=== PATIENT | male | born 1955 | race Caucasian/White ===

== ENCOUNTER 2020-09-20 19:22 | Emergency (ER) | payer MEDICARE, OTHER ==
[2020-09-20] MEDS ORDERED: Sodium Chloride 0.9% 10 ML Syringe FLUSH PRN (19:45)
--- NOTE | 2020-09-20 20:59 | EDM.PDOC ---
ED HPI GENERAL MEDICAL PROBLEM - General Chief Complaint: Respiratory Problem Stated Complaint: SOB Time Seen by Provider: 09/20/20 19:44 Source of Information: Reports: Patient, Family History Limitations: Reports: No Limitations - History of Present Illness INITIAL COMMENTS - FREE TEXT/NARRATIVE: Swetha is a 65-year-old male presenting to the ED for evaluation of hypoxia and dyspnea. Patient has a history significant for COPD and does use home oxygen with his CPAP machine but does not usually wear oxygen during the day. Today he was feeling more washed out, short of breath, and experience some chest tightness and checked his oxygen level finding it only at 81%. He did scrap picker his CPAP to the oxygen concentrator and was using that for about an hour which reportedly did bring his saturation up to 86%, however, the patient was still feeling significantly short of breath. He denies any cough or sputum production. He has not had any fever or chills. He also complains of flulike symptoms including backache and muscle pains. He has been vaccinated for COVID- 19 with both vaccine doses. He has not lost his sense of taste or smell. - Related Data Allergies Allergy/AdvReac Type Severity Reaction Status Date / Time No Known Allergies Allergy Verified 09/20/20 19:58 Home Meds: Home Meds Omeprazole 40 mg PO DAILY 10/04/19 [History] lisinopriL [Lisinopril] 10 mg PO DAILY 10/04/19 [History] metFORMIN [Glucophage] 1,000 mcg PO BID 10/04/19 [History] Albuterol Sulfate [Albuterol Sulfate Hfa] 8.5 gm IH Q4H PRN 09/20/20 [History] Aspirin [Ecotrin EC] 81 mg PO DAILY 09/20/20 [History] Dulaglutide [Trulicity] 0.75 mg SQ WEEKLY 09/20/20 [History] Theophylline [Jeffrey-24] 300 mg PO DAILY 09/20/20 [History] Triamterene/Hydrochlorothiazid [Triamterene-HCTZ 37.5-25 MG] 1 tab PO DAILY 09/20/20 [History] atorvaSTATin [Lipitor] 40 mg PO BEDTIME 09/20/20 [History] Past Medical History HEENT History: Reports: Hard of Hearing Cardiovascular History: Reports: Aneurysm, Bypass, High Cholesterol, Hypertension Respiratory History: Reports: COPD, SOB Gastrointestinal History: Reports: Hiatal Hernia Endocrine/Metabolic History: Reports: Diabetes, Type II Oncologic (Cancer) History: Reports: Malignant Melanoma - Infectious Disease History Infectious Disease History: Reports: Chicken Pox, Shingles Social & Family History - Tobacco Use Tobacco Use Status *Q: Former Tobacco User Used Tobacco, but Quit: Yes Month/Year Tobacco Last Used: 2005 - Caffeine Use Caffeine Use: Reports: Coffee - Recreational Drug Use Recreational Drug Use: No ED ROS GENERAL - Review of Systems Review Of Systems: See Below ED EXAM, GENERAL - Physical Exam Exam: See Below Exam Limited By: No Limitations General Appearance: Alert, Anxious, Mild Distress Eye Exam: Bilateral Eye: EOMI, PERRL Throat/Mouth: Normal Inspection, Normal Oropharynx, Normal Voice, No Airway Compromise Head: Atraumatic, Normocephalic Neck: Normal Inspection, Supple, Non-Tender, Full Range of Motion Respiratory/Chest: No Respiratory Distress, No Accessory Muscle Use, Decreased Breath Sounds (Bibasilar), Wheezing (Aspiratory and expiratory wheezes), Prolonged Expiration. No: Retractions Cardiovascular: Normal Peripheral Pulses, Regular Rate, Rhythm, Systolic Murmur (2/6 systolic ejection murmur) Peripheral Pulses: 2+: Radial (L), Radial (R), Posterior Tibial (L), Posterior T ibial (R) GI/Abdominal: Normal Bowel Sounds, Soft, Non-Tender, No Distention Back Exam: Normal Inspection Extremities: Normal Inspection, Normal Range of Motion, No Pedal Edema Neurological: Alert, Oriented, Normal Cognition, No Motor/Sensory Deficits Psychiatric: Normal Affect Skin Exam: Warm, Dry, Intact Lymphatic: No Adenopathy #1 Interpretation EKG Date: 09/20/20 Time: 20:00 Rhythm: NSR Rate (Beats/Min): 91 [place]: LAD-Left [place] Deviation P-Wave: Enlarged (Left atrial enlargement) QRS: Normal (Nonspecific interventricular conduction delay. Poor R wave progression in the precordial leads.) ST-T: Normal (Nonspecific ST-T changes throughout the EKG.) QT: Prolonged Comparison: NA - No Prior EKG Course - Vital Signs Last Recorded V/S: Last Vital Signs Temp 37.5 C 09/20/20 19:57 Pulse 92 09/20/20 19:57 Resp 16 09/20/20 19:57 BP 127/65 09/20/20 19:57 Pulse Ox 90 L 09/20/20 19:57 - Orders/Labs/Meds Orders: Active Orders 24 hr Category Date Time Status EKG Documentation Completion [RC] ASDIRECTED Care 09/20/20 19:46 Active RT Aerosol Therapy [RC] ASDIRECTED Care 09/20/20 21:15 Ordered Chest 2V [CR] Stat Exams 09/20/20 19:45 Taken Sodium Chloride 0.9% [Saline Flush] Med 09/20/20 19:45 Active 10 ml FLUSH ASDIRECTED PRN Saline Lock Insert [OM.PC] Routine Oth 09/20/20 19:45 Ordered EKG 12 Lead [EK] Routine Ther 09/20/20 19:45 Ordered Medication Orders Sodium Chloride (Sodium Chloride 0.9% 10 Ml Syringe) 10 ml FLUSH ASDIRECTED PRN PRN Reason: Keep Vein Open Last Admin: 09/20/20 20:27 Dose: 10 ml Documented by: ALEX Labs: Laboratory Tests 09/20/20 09/20/20 09/20/20 Range/Units 19:55 19:55 20:55 WBC 6.8 (4.5-11.0) K/uL RBC 5.04 (4.30-5.90) M/uL Hgb 14.6 (12.0-15.0) g/dL Hct 42.7 (40.0-54.0) % MCV 85 (80-98) fL MCH 29 (27-31) pg MCHC 34 (32-36) % Plt Count 180 (150-400) K/uL Neut % (Auto) 74.4 H (36-66) % Lymph % (Auto) 13.2 L (24-44) % [place] % (Auto) 12.1 H (2-6) % Eos % (Auto) 0.0 L (2-4) % Baso % (Auto) 0.3 (0-1) % Sodium 139 L (140-148) mmol/L Potassium 3.9 (3.6-5.2) mmol/L Chloride 101 (100-108) mmol/L Carbon Dioxide 27 (21-32) mmol/L Anion Gap 14.9 H (5.0-14.0) mmol/L BUN 15 (7-18) mg/dL Creatinine 1.0 (0.8-1.3) mg/dL Est Cr Clr Drug Dosing 75.03 mL/min Estimated GFR (MDRD) > 60 (>60) Glucose 141 H (74-106) mg/dL Calcium 8.2 L (8.5-10.1) mg/dL Total Bilirubin 0.7 (0.2-1.0) mg/dL AST 14 L (15-37) U/L ALT 30 (12-78) U/L Alkaline Phosphatase 85 (46-116) U/L Troponin I < 0.017 (0.000-0.056) ng/mL C-Reactive Protein 3.74 H (0.0-0.3) mg/dL Total Protein 6.4 (6.4-8.2) g/dL Albumin 3.5 (3.4-5.0) g/dL Globulin 2.9 (2.3-3.5) g/dL Albumin/Globulin Ratio 1.2 (1.2-2.2) Meds: Medications Generic Name Dose Route Start Last Admin Trade Name Freq PRN Reason Stop Dose Admin Sodium Chloride 10 ml 09/20/20 19:45 09/20/20 20:27 Sodium Chloride 0.9% 10 Ml Syringe FLUSH 10 ml ASDIRECTED PRN Administration Keep Vein Open Discontinued Medications Generic Name Dose Route Start Last Admin Trade Name Freq PRN Reason Stop Dose Admin Albuterol/Ipratropium 3 ml 09/20/20 21:14 09/20/20 21:19 Albuterol/Ipratropium 3.0-0.5 Mg/3 Ml Neb Soln NEB 09/20/20 21:15 3 ml ONETIME ONE Administration Calcium Gluconate 1 gm 09/20/20 21:19 Calcium Gluconate 10% 1 Gm/10 Ml Sdv IVPUSH 09/20/20 21:20 ONETIME ONE Methylprednisolone Sodium Succinate 125 mg 09/20/20 21:12 09/20/20 21:24 Methylprednisolone Sodium Succinate 125 Mg/2 Ml Sdv IVPUSH 09/20/20 21:13 125 mg ONETIME ONE Administration - Radiology Interpretation Free Text/Narrative:: I reviewed the patient's 2 view chest x-ray showing hyperinflation with flattening of the diaphragms consistent with COPD. There is some evidence for pulmonary fibrosis. He has mild cardiomegaly. No evidence for acute infiltrates. - Re-Assessments/Exams Free Text/Narrative Re-Assessment/Exam: 09/20/20 21:07 I reviewed the patient's labs showing a leukocyte count of 6.8 with a hemoglobin of 14.6 and a hematocrit of 42.7. The patient's platelet count is 180,000. His comprehensive metabolic panel is significant for a calcium of 8.2. He otherwise is normal with a sodium of 139, potassium 3.9, chloride of 101, bicarbonate of 27, BUN of 15 with a creatinine of 1.0 and a glucose of 141. AST is 14 with an ALT of 30 and a normal alkaline phosphatase. His troponin I is less than 0.017. His chest x-ray is significant for COPD with hyperinflation and flattening of the diaphragms. There is no evidence for an acute infiltrate. This is likely an acute exacerbation of COPD. My plan is to treat him with a 10-day course of prednisone. He is on theophylline and has a rescue inhaler with albuterol. We will put him on the albuterol every 4 hours for the next couple of days until his symptoms resolve. 09/20/20 21:33 the patient's oxygen saturations were in the high 80s low 90s. He was given a DuoNeb and Solu-Medrol 125 mg IV push. He had improvement with his sats remaining above 93% on room air. In addition, the patient had significant hypocalcemia which we repleted with calcium gluconate 1 g IV push. This should also help with his shortness of breath and weakness. My plan is to treat this acute exacerbation of COPD with a 10-day prednisone taper and an albuterol inhaler 1 to 2 puffs every 4 hours as needed. She will likely need to do it every 4 hours for the first day or 2. Do feel the patient has improved significantly and is suitable for discharge home at this time. Occasions return to the ED were discussed and all questions were answered prior to discharge. Departure - Departure Time of Disposition: 21:35 Disposition: Home, Self-Care 01 Clinical Impression: COPD with acute exacerbation, Hypocalcemia - Discharge Information Instructions: Chronic Obstructive Pulmonary Disease Exacerbation, [id number] Referrals: PCP,None [Ordering Only Provider] - Forms: ED Department Discharge Care Plan Goals: We are going to put you on a prednisone taper. Please take as directed. This will help reduce the inflammation in the lungs and airways. In addition, I have prescribed an albuterol inhaler that you may use 1 to 2 puffs every 4 hours as needed for shortness of breath. You will likely need to do this scheduled every 4 hours while awake for the next 2 days until you have resolution of your shortness of breath. Sepsis Event Note (ED) - Evaluation Sepsis Screening Result: No Definite Risk - Focused Exam Vital Signs: Vital Signs Temp Pulse Resp BP Pulse Ox 09/20/20 19:57 37.5 C 92 16 127/65 90 L 09/20/20 19:39 37.5 C 92 16 127/65 90 L - Problem List & Annotations (1) COPD with acute exacerbation SNOMED Code(s): 979500741 Code(s): J44.1 - CHRONIC OBSTRUCTIVE PULMONARY DISEASE W (ACUTE) EXACERBATION Status: Acute Priority: Medium Current Visit: Yes (2) Hypocalcemia SNOMED Code(s): 0614800 Code(s): E83.51 - HYPOCALCEMIA Status: Acute Priority: Medium Current Visit: Yes - Problem List Review Problem List Initiated/Reviewed/Updated: Yes - My Orders Last 24 Hours: My Active Orders 09/20/20 19:45 Chest 2V [CR] Stat Sodium Chloride 0.9% [Saline Flush] 10 ml FLUSH ASDIRECTED PRN Saline Lock Insert [OM.PC] Routine EKG 12 Lead [EK] Routine 09/20/20 19:46 EKG Documentation Completion [RC] ASDIRECTED 09/20/20 21:15 RT Aerosol Therapy [RC] ASDIRECTED - Assessment/Plan Last 24 Hours: My Active Orders 09/20/20 19:45 Chest 2V [CR] Stat Sodium Chloride 0.9% [Saline Flush] 10 ml FLUSH ASDIRECTED PRN Saline Lock Insert [OM.PC] Routine EKG 12 Lead [EK] Routine 09/20/20 19:46 EKG Documentation Completion [RC] ASDIRECTED 09/20/20 21:15 RT Aerosol Therapy [RC] ASDIRECTED
[2020-09-20] MEDS ORDERED: methylPREDNISolone Sodium Succinate 125 MG/2 ML SDV IVPUSH ONE (21:12)
[2020-09-20] MEDS ORDERED: Albuterol/Ipratropium 3.0-0.5 MG/3 ML Neb Soln NEB ONE (21:14)
[2020-09-20] MEDS ORDERED: Calcium Gluconate 10% 1 GM/10 ML SDV IVPUSH ONE (21:19)
--- NOTE | 2020-09-21 08:50 | CR ---
CHEST: 2 view CLINICAL HISTORY:Dyspnea COMPARISON:None FINDINGS: Patient has had previous sternotomy. Lungs are hyperaerated. No infiltrate effusion or pneumothorax is seen. IMPRESSION: Previous sternotomy Changes of COPD.
== END 2020-09-20 22:00 | disposition home or self-care (01) ==
LOC: JP.ED 19:22
DX: J44.1 Chronic obstructive pulmonary disease with (acute) exacerbation (principal); E83.51 Hypocalcemia; I10 Essential (primary) hypertension; E11.9 Type 2 diabetes mellitus without complications; E78.00 Pure hypercholesterolemia, unspecified; Z87.891 Personal history of nicotine dependence; Z95.1 Presence of aortocoronary bypass graft; Z79.82 Long term (current) use of aspirin; Z79.899 Other long term (current) drug therapy
CPT/HCPCS: 36415; 71046; 80053; 84484; 85025; 86140; 93005; 94640; 96374; 96375; 99285; J0610; J2930; J7620-GY

== ENCOUNTER 2022-12-04 08:42 | Emergency (ER) | payer MEDICARE ==
[2022-12-04] MEDS ORDERED: Metoprolol Tartrate 5 MG in Sodium Chloride 0.9% 50 ML IV ONE (09:49)
[2022-12-04] MEDS ORDERED: Sodium Chloride 0.9% 1,000 ML IV SCH (10:00)
[2022-12-04] MEDS ORDERED: Diltiazem 25 MG/5 ML SDV IVPUSH ONE ×2 (10:00→11:07)
[2022-12-04 10:03] LABS: BASE EXCESS VENOUS 0.7 mm/L; BASOPHILS ABSOLUTE AUTO 0.05 K/uL (0.00-0.10); BASOPHILS PERCENT AUTO 0.3 % (0.1-1.3); BICARBONATE,VENOUS 22.1 mmol/L; CARBOXYHEMOGLOBIN 2.5 % (0.0-1.6); EOSINOPHILS PERCENT AUTO 0.1 % (0.0-5.4); HEMATOCRIT 38.5 % (38.4-49.7); HEMOGLOBIN 13.6 g/dL (12.9-16.9); IMMATURE GRAN ABSOLUTE AUTO 0.23 K/uL (0.00-0.23); IMMATURE GRAN PERCENT AUTO 1.2 % (0.0-0.7); LYMPHOCYTES ABSOLUTE AUTO 0.99 K/uL (0.8-3.3); MEAN CORPUSCULAR HEMOGLOBIN 28.9 pg (31.6-35.5); MEAN CORPUSCULAR HGB CONC 35.3 g/dL (31.6-35.5); MEAN CORPUSCULAR VOLUME 81.7 fL (81.4-99.0); METHEMOGLOBIN 0.6 %; MONOCYTES ABSOLUTE AUTO 0.54 K/uL (0.20-0.90); MONOCYTES PERCENT AUTO 2.7 % (3.3-12.6); NEUTROPHILS ABSOLUTE AUTO 17.94 K/uL (1.0-7.6); NEUTROPHILS PERCENT AUTO 90.7 % (40.0-78.1); O2 SATURATION VENOUS 80.9; OXYHEMOGLOBIN 78.4 %; PCO2 VENOUS 27.3 mm/Hg; PH,VENOUS 7.519 (7.350-7.450); PLATELET COUNT,PLT 438 K/uL (130-375); PO2 VENOUS 46.6 mm/Hg; RED BLOOD CELL COUNT 4.71 M/uL (4.14-5.76); TOTAL HEMOGLOBIN 14.1 g/dL (13.5-18.0); WHITE BLOOD CELL COUNT,WBC 19.8 K/uL (3.2-11.0)
[2022-12-04 10:05] LABS: EOSINOPHILS ABSOLUTE AUTO 0.02 K/uL (0.00-0.40)
[2022-12-04 10:23] LABS: INR 1.2; PROTHROMBIN TIME 12.4 sec (9.2-10.6)
[2022-12-04 10:37] LABS: A/G RATIO 0.5 (1.2-2.2); ALANINE AMINOTRANSFERASE,ALT 67 U/L (12-78); ALBUMIN 2.4 g/dL (3.4-5.0); ALKALINE PHOSPHATASE 111 U/L (46-116); ASPARTATE AMNIOTRANSFERASE,AST 22 U/L (15-37); BILIRUBIN TOTAL 0.7 mg/dL (0.2-1.0); BLOOD UREA NITROGEN,BUN 22 mg/dL (7-18); CALCIUM 8.5 mg/dL (8.5-10.1); CARBON DIOXIDE,CO2 24 mmol/L (21-32); CHLORIDE,CL 93 mmol/L (100-108); CREATININE 1.1 mg/dL (0.8-1.3); EST CRCL DRUG DOSING (CG) 66.36 mL/min; ESTIMATED GFR 73 mL/min (>60); GLUCOSE RANDOM 159 mg/dL (74-106); POTASSIUM,K 3.8 mmol/L (3.6-5.2); PRO B-TYPE NATRIUR PEPT,BNPPRO 4002 pg/mL (5-125); PROTEIN TOTAL,TP 6.9 g/dL (6.4-8.2); SODIUM,NA 130 mmol/L (140-148)
[2022-12-04 10:38] LABS: ANION GAP 16.8 mmol/L (5.0-14.0)
[2022-12-04 11:08] LABS: APPEARANCE,URINE CLEAR (CLEAR); BILIRUBIN,URINE NEGATIVE (NEGATIVE); COLOR,URINE YELLOW (YELLOW); GLUCOSE,URINE NEGATIVE (NEGATIVE); KETONES,URINE NEGATIVE (NEGATIVE); LEUKOCYTE ESTERASE,URINE NEGATIVE (NEGATIVE); NITRITE,URINE NEGATIVE (NEGATIVE); OCCULT BLOOD,URINE NEGATIVE (NEGATIVE); PROTEIN,URINE 30 mg/dL (NEGATIVE)
[2022-12-04 11:16] LABS: AMORPHOUS SEDIMENT,URINE NOT SEEN; BACTERIA,URINE RARE; EPITHELIAL CELLS,URINE NOT SEEN; MUCUS,URINE RARE; RBC,URINE 0-5 (0-5); WBC,URINE 0-5 (0-5)
[2022-12-04 11:17] LABS: AMPHETAMINES SCREEN, URINE NEGATIVE (NEGATIVE); BARBITURATE SCREEN,URINE NEGATIVE (NEGATIVE); BENZODIAZEPINES SCREEN,URINE NEGATIVE (NEGATIVE); METHADONE SCREEN, URINE NEGATIVE (NEGATIVE); METHAMPHETAMINES SCREEN, URINE NEGATIVE (NEGATIVE); OXYCODONE SCREEN,URINE NEGATIVE (NEGATIVE); PROPOXYPHENE SCREEN,URINE NEGATIVE (NEGATIVE); THC SCREEN,URINE 50 NG/ML NEGATIVE (NEGATIVE)
[2022-12-04] MEDS ORDERED: Metoprolol Tartrate 50 MG Tab PO ONE (12:13)
[2022-12-04] MEDS ORDERED: Sodium Chloride 0.9% 50 ML IV ONE (12:30)
[2022-12-04] MEDS ORDERED: Sodium Chloride 0.9% 10 ML Syringe FLUSH ONE (12:30)
[2022-12-04] MEDS ORDERED: Iopamidol 612 MG/ML 100 ML Bottle IV ONE (12:30)
[2022-12-04 12:59] LABS: LYME AB IgG Positive (Negative); LYME AB IgM Positive (Negative)
[2022-12-04] MEDS ORDERED: Doxycycline 100 MG Cap PO ONE (13:08)
== END 2022-12-04 13:42 | disposition home or self-care (01) ==
LOC: JP.ED 08:42
DX: I48.20 Chronic atrial fibrillation, unspecified (principal); A69.20 Lyme disease, unspecified; I10 Essential (primary) hypertension; E78.00 Pure hypercholesterolemia, unspecified; J44.9 Chronic obstructive pulmonary disease, unspecified; E11.9 Type 2 diabetes mellitus without complications; Z79.84 Long term (current) use of oral hypoglycemic drugs; Z79.82 Long term (current) use of aspirin; Z79.01 Long term (current) use of anticoagulants; Z79.899 Other long term (current) drug therapy; Z20.822 Contact with and (suspected) exposure to COVID-19
CPT/HCPCS: 36415; 71045; 74177; 80053; 80198; 80305; 81001; 82803; 83605; 83880; 84443; 84484; 85025; 85379; 85610; 86617; 86618; 86666; 86753; 93005; 96361; 96374; 96376; 99285; A9270; J3490; J7030; Q9967; U0002

== ENCOUNTER 2023-11-02 16:06 | Emergency (ER) | payer MEDICARE, OTHER | END 2023-11-02 17:21 | disposition home or self-care (01) | LOC: JP.ED 16:06 | DX: U07.1 COVID-19 (principal); I10 Essential (primary) hypertension; E78.00 Pure hypercholesterolemia, unspecified; J44.9 Chronic obstructive pulmonary disease, unspecified; K21.9 Gastro-esophageal reflux disease without esophagitis; E11.9 Type 2 diabetes mellitus without complications; Z95.1 Presence of aortocoronary bypass graft; Z79.01 Long term (current) use of anticoagulants; Z79.899 Other long term (current) drug therapy; Z79.82 Long term (current) use of aspirin; Z79.84 Long term (current) use of oral hypoglycemic drugs | CPT/HCPCS: 99283 ==

== ENCOUNTER 2024-09-23 14:42 | Emergency (ER) | payer MEDICARE, OTHER | END 2024-09-23 16:11 | disposition home or self-care (01) | LOC: JP.ED 14:42 | DX: R00.1 Bradycardia, unspecified (principal); E78.00 Pure hypercholesterolemia, unspecified; I10 Essential (primary) hypertension; J44.9 Chronic obstructive pulmonary disease, unspecified; E11.9 Type 2 diabetes mellitus without complications; Z79.84 Long term (current) use of oral hypoglycemic drugs; Z79.82 Long term (current) use of aspirin; Z79.01 Long term (current) use of anticoagulants; Z86.16 Personal history of COVID-19; Z79.51 Long term (current) use of inhaled steroids; Z95.5 Presence of coronary angioplasty implant and graft; Z87.891 Personal history of nicotine dependence; Z79.899 Other long term (current) drug therapy | CPT/HCPCS: 99283 ==

== ENCOUNTER 2024-09-24 09:24 | Emergency (ER) | payer MEDICARE, OTHER ==
[2024-09-24 09:45] LABS: BASOPHILS PERCENT AUTO 0.3 % (0.1-1.3); EOSINOPHILS PERCENT AUTO 0.6 % (0.0-5.4); HEMATOCRIT 41.1 % (38.4-49.7); IMMATURE GRAN PERCENT AUTO 0.3 % (0.0-0.7); LYMPHOCYTES ABSOLUTE AUTO 0.93 K/uL (0.8-3.3); MEAN CORPUSCULAR HEMOGLOBIN 30.2 pg (31.6-35.5); MEAN CORPUSCULAR HGB CONC 34.1 g/dL (31.6-35.5); MEAN CORPUSCULAR VOLUME 88.6 fL (81.4-99.0); MONOCYTES ABSOLUTE AUTO 0.48 K/uL (0.20-0.90); MONOCYTES PERCENT AUTO 13.9 % (3.3-12.6); NEUTROPHILS PERCENT AUTO 57.9 % (40.0-78.1); PLATELET COUNT,PLT 129 K/uL (130-375); RED BLOOD CELL COUNT 4.64 M/uL (4.14-5.76); WHITE BLOOD CELL COUNT,WBC 3.5 K/uL (3.2-11.0)
[2024-09-24 09:48] LABS: BASOPHILS ABSOLUTE AUTO 0.01 K/uL (0.00-0.10); EOSINOPHILS ABSOLUTE AUTO 0.02 K/uL (0.00-0.40); IMMATURE GRAN ABSOLUTE AUTO 0.01 K/uL (0.00-0.23)
[2024-09-24 10:10] LABS: BLOOD UREA NITROGEN,BUN 33 mg/dL (7-18); CALCIUM 8.9 mg/dL (8.5-10.1); CARBON DIOXIDE,CO2 27 mmol/L (21-32); CHLORIDE,CL 101 mmol/L (100-108); CREATININE 1.2 mg/dL (0.8-1.3); ESTIMATED GFR 65 mL/min (>60); GLUCOSE RANDOM 118 mg/dL (74-106); POTASSIUM,K 3.9 mmol/L (3.6-5.2); SODIUM,NA 139 mmol/L (140-148); TROPONIN I HIGH SENSITIVITY 8.7 pg/mL (<=60.3)
[2024-09-24 10:25] LABS: ANION GAP 14.9 mmol/L (5.0-14.0)
== END 2024-09-24 13:29 | disposition other institution (70) ==
LOC: JP.ED 09:24
DX: R00.1 Bradycardia, unspecified (principal); I10 Essential (primary) hypertension; J44.9 Chronic obstructive pulmonary disease, unspecified; E11.9 Type 2 diabetes mellitus without complications; E78.00 Pure hypercholesterolemia, unspecified; Z79.51 Long term (current) use of inhaled steroids; Z79.899 Other long term (current) drug therapy; Z79.85 Long-term (current) use of injectable non-insulin antidiabetic drugs; Z86.16 Personal history of COVID-19; Z95.5 Presence of coronary angioplasty implant and graft
CPT/HCPCS: 36415; 71045; 71045-26; 80048; 84484; 85025; 93005; 93010; 99284; 99285

== ENCOUNTER 2024-12-21 09:48 | Emergency (ER) | payer MEDICARE, OTHER ==
[2024-12-21 10:25] LABS: BASE EXCESS VENOUS 2.7 mm/L; BASOPHILS PERCENT AUTO 0.2 % (0.1-1.3); BICARBONATE,VENOUS 27.0 mmol/L; EOSINOPHILS ABSOLUTE AUTO 0.07 K/uL (0.00-0.40); EOSINOPHILS PERCENT AUTO 1.5 % (0.0-5.4); IMMATURE GRAN PERCENT AUTO 0.2 % (0.0-0.7); LYMPHOCYTES ABSOLUTE AUTO 1.04 K/uL (0.8-3.3); LYMPHOCYTES PERCENT AUTO 22.9 % (11.4-47.7); MONOCYTES ABSOLUTE AUTO 0.53 K/uL (0.20-0.90); MONOCYTES PERCENT AUTO 11.6 % (3.3-12.6); NEUTROPHILS ABSOLUTE AUTO 2.89 K/uL (1.0-7.6); NEUTROPHILS PERCENT AUTO 63.6 % (40.0-78.1); O2 SATURATION VENOUS 77.6; OXYHEMOGLOBIN 75.1 %; PCO2 VENOUS 42.2 mm/Hg; PH,VENOUS 7.422 (7.350-7.450); PLATELET COUNT,PLT 174 K/uL (130-375); PO2 VENOUS 43.4 mm/Hg; RED BLOOD CELL COUNT 4.76 M/uL (4.14-5.76); TOTAL HEMOGLOBIN 14.5 g/dL (13.5-18.0); WHITE BLOOD CELL COUNT,WBC 4.6 K/uL (3.2-11.0)
[2024-12-21 10:27] LABS: BASOPHILS ABSOLUTE AUTO 0.01 K/uL (0.00-0.10); IMMATURE GRAN ABSOLUTE AUTO 0.01 K/uL (0.00-0.23)
[2024-12-21 10:55] LABS: A/G RATIO 1.0 (1.2-2.2); ALANINE AMINOTRANSFERASE,ALT 33 U/L (12-78); ASPARTATE AMNIOTRANSFERASE,AST 25 U/L (15-37); BILIRUBIN TOTAL 0.8 mg/dL (0.2-1.0); BLOOD UREA NITROGEN,BUN 13 mg/dL (7-18); CARBON DIOXIDE,CO2 28 mmol/L (21-32); CHLORIDE,CL 104 mmol/L (100-108); CREATININE 1.0 mg/dL (0.8-1.3); ESTIMATED GFR 81 mL/min (>60); GLUCOSE RANDOM 103 mg/dL (74-106); POTASSIUM,K 3.6 mmol/L (3.6-5.2); PRO B-TYPE NATRIUR PEPT,BNPPRO 318 pg/mL (5-125); PROTEIN TOTAL,TP 6.7 g/dL (6.4-8.2); SODIUM,NA 142 mmol/L (140-148)
== END 2024-12-21 12:12 | disposition home or self-care (01) ==
LOC: JP.ED 09:48
DX: J18.9 Pneumonia, unspecified organism (principal); I10 Essential (primary) hypertension; E78.00 Pure hypercholesterolemia, unspecified; J44.9 Chronic obstructive pulmonary disease, unspecified; E11.9 Type 2 diabetes mellitus without complications; K21.9 Gastro-esophageal reflux disease without esophagitis; Z86.16 Personal history of COVID-19; Z79.82 Long term (current) use of aspirin; Z79.01 Long term (current) use of anticoagulants; Z79.899 Other long term (current) drug therapy
CPT/HCPCS: 36415; 71045; 80053; 82803; 83880; 85025; 93005; 94640; 99283; 99285; A9270

== ENCOUNTER 2024-12-23 12:17 | Inpatient (IN) | payer MEDICARE, OTHER ==
[2024-12-23] MEDS ORDERED: Sodium Chloride 0.9% 10 ML Syringe IV PRN (12:50)
[2024-12-23] MEDS: Furosemide 40 MG/4 ML VIAL IVPUSH SCH (13:04)
[2024-12-23] MEDS ORDERED: MEXILETINE 200 MG PO SCH (14:00)
[2024-12-23] MEDS ORDERED: Non-Formulary Medication 1 Each (Atorvastatin [Lipitor] 40 MG Tablet) PO SCH (21:00)
[2024-12-24 05:54] LABS: PLATELET COUNT,PLT 188.0 K/uL (130-375); RED BLOOD CELL COUNT 4.65 M/uL (4.14-5.76); WHITE BLOOD CELL COUNT,WBC 5.0 K/uL (3.2-11.0)
[2024-12-24 06:14] LABS: A/G RATIO 1.0 (1.2-2.2); ALANINE AMINOTRANSFERASE,ALT 32 U/L (12-78); ASPARTATE AMNIOTRANSFERASE,AST 22 U/L (15-37); BILIRUBIN TOTAL 0.4 mg/dL (0.2-1.0); BLOOD UREA NITROGEN,BUN 16 mg/dL (7-18); CARBON DIOXIDE,CO2 34 mmol/L (21-32); CHLORIDE,CL 107 mmol/L (100-108); CREATININE 0.8 mg/dL (0.8-1.3); EST CRCL DRUG DOSING (CG) 88.72 mL/min; ESTIMATED GFR 95 mL/min (>60); GLUCOSE RANDOM 108 mg/dL (74-106); POTASSIUM,K 3.3 mmol/L (3.6-5.2); PROTEIN TOTAL,TP 6.2 g/dL (6.4-8.2); SODIUM,NA 146 mmol/L (140-148)
[2024-12-24] MEDS: Formoterol/Mometasone 200-5 MCG 8.8 GM Inhaler IH SCH (06:58)
[2024-12-24] MEDS: Tiotropium Bromide 4 GM Inhalation Spray (2.5mcg/1 dose; 10 doses) INH SCH (06:58)
[2024-12-24] MEDS ORDERED: Potassium Chloride 20 MEQ Tab.ER PO ONE (09:00)
[2024-12-24] MEDS: Potassium Chloride 20 MEQ Tab.ER PO ONE (12:01)
[2024-12-25 05:55] LABS: PLATELET COUNT,PLT 251.0 K/uL (130-375); RED BLOOD CELL COUNT 5.06 M/uL (4.14-5.76); WHITE BLOOD CELL COUNT,WBC 6.0 K/uL (3.2-11.0)
[2024-12-25 06:12] LABS: A/G RATIO 1.0 (1.2-2.2); ALANINE AMINOTRANSFERASE,ALT 36 U/L (12-78); ASPARTATE AMNIOTRANSFERASE,AST 19 U/L (15-37); BILIRUBIN TOTAL 0.4 mg/dL (0.2-1.0); BLOOD UREA NITROGEN,BUN 17 mg/dL (7-18); CARBON DIOXIDE,CO2 33 mmol/L (21-32); CHLORIDE,CL 106 mmol/L (100-108); CREATININE 0.9 mg/dL (0.8-1.3); EST CRCL DRUG DOSING (CG) 78.86 mL/min; ESTIMATED GFR 92 mL/min (>60); GLUCOSE RANDOM 115 mg/dL (74-106); POTASSIUM,K 3.4 mmol/L (3.6-5.2); PROTEIN TOTAL,TP 6.9 g/dL (6.4-8.2); SODIUM,NA 147 mmol/L (140-148)
[2024-12-25] MEDS: Potassium Chloride 20 MEQ Tab.ER PO ONE (10:03)
== END 2024-12-25 11:35 | disposition home or self-care (01) | DRG 189 ==
LOC: JP.MS 12:17
PROVIDERS: ADMIT Student in an Organized Health Care Education/Training Program; ATTEND Student in an Organized Health Care Education/Training Program
DX: J96.21 Acute and chronic respiratory failure with hypoxia (principal); J44.1 Chronic obstructive pulmonary disease with (acute) exacerbation; I50.9 Heart failure, unspecified; E78.00 Pure hypercholesterolemia, unspecified; I11.0 Hypertensive heart disease with heart failure; K21.9 Gastro-esophageal reflux disease without esophagitis; E11.9 Type 2 diabetes mellitus without complications; H91.90 Unspecified hearing loss, unspecified ear; I48.0 Paroxysmal atrial fibrillation; Z79.899 Other long term (current) drug therapy; Z79.52 Long term (current) use of systemic steroids; Z86.16 Personal history of COVID-19; Z95.1 Presence of aortocoronary bypass graft; Z87.891 Personal history of nicotine dependence; Z79.01 Long term (current) use of anticoagulants
CPT/HCPCS: 36415; 80053; 83880; 84484; 85027; 93005; 93010; 94640; 99223; 99232; 99238; A9270-GY; J0696; J1938; J7512